=== PATIENT | male | born 1970 | race Caucasian/White ===

== ENCOUNTER → 2017-12-23 | Outpatient (CLI) | payer BC ==
[2017-12-23 10:07] LABS: BUN 15 mg/dl (7-24); CHLORIDE 103 mmol/L (98-107); CHOLESTEROL 176 mg/dL (<200); HDL CHOLESTEROL 82 mg/dl (40-60); LDL CHOLESTEROL 88 mg/dL (9-159); SODIUM 140 mmol/L (136-145); TRIGLYCERIDES 28 mg/dl (<150); VLDL CHOLESTEROL 6 mg/dL (6-40)
== END | disposition home or self-care (01) ==
LOC: LAB 09:07
PROVIDERS: Family Medicine
DX: R03.0 Elevated blood-pressure reading, without diagnosis of hypertension (principal)

== ENCOUNTER → 2018-11-14 | Outpatient (CLI) | payer BC ==
[~2018-11-14] MED LIST: APPLE CIDER VI500 MG PO; CALCIUM 600 +1 EAC2 PO; FISH OIL 1,0001 EAC2 PO; GLUCOSAMINE-CH1 EACH PO; GOOD SENSE ASPI81 M1 PO; LISINOPRIL10 M1 PO; MAGNESIUM PO; MEN'S MULTIVIT1 EAC1 PO; METOPROLOL SUCC25 M2 PO; MILK THISTLE150 MG PO; NEXIUM40 MG PO; POTASSIUM99 M5 PO; PROBIOTIC ACID1 EAC3 PO; SUPER B-50 COM1 EAC1 PO; VITAMIN C1000 M5 PO
--- NOTE | ~2018-11-14 | ST ---
[place], [place] EXERCISE STRESS TEST REPORT NAME: JEM VELA UNIT #: [id number] ROOM: DOCTOR: ARDEN BARKER [facility],[place] BIRTHDATE: [birth year] DOS: 11/14/2018 The patient underwent stress test and stays on Jelani protocol up to 10 minutes and heart rate is 148, blood pressure response is 106/82, 86% predicted heart rate. No ischemic changes in the EKG. Blood pressure response is good. Double product is good. No complication noted. Isotope was injected. Exercised more than a minute after the isotope injection and myocardial perfusion scan to follow. Exercise tolerance is fairly good. SHEBA HER MD CM:STRESS:EXERCISE STRESS TEST REPORT [id number] SHEBA HER MD [facility]
== END | disposition home or self-care (01) ==
LOC: CARD 01:13
DX: I20.9 Angina pectoris, unspecified (principal)

== ENCOUNTER → 2020-05-06 | Outpatient (CLI) | payer BC | END | disposition home or self-care (01) | LOC: RAD 09:56 | PROVIDERS: ATTEND Family Medicine | DX: M16.12 Unilateral primary osteoarthritis, left hip (principal) ==

== ENCOUNTER 2021-02-10 08:53 | Emergency (ER) | payer BC ==
[~2021-02-10] VITALS: Wt 123.4 kg
[2021-02-10] MEDS ORDERED: DOXYCYCLINE100 M3 PO (10:16)
== END 2021-02-10 10:31 | disposition home or self-care (01) ==
LOC: ED 08:53
DX: L03.115 Cellulitis of right lower limb (principal); F17.200 Nicotine dependence, unspecified, uncomplicated; Z79.899 Other long term (current) drug therapy; Z79.82 Long term (current) use of aspirin

== ENCOUNTER → 2021-11-14 | Outpatient (CLI) | payer BC ==
[~2021-11-14] MED LIST changes: +DOXYCYCLINE100 M3 PO
== END | disposition home or self-care (01) ==
LOC: RAD 01:42
PROVIDERS: ATTEND Internal Medicine
DX: M17.0 Bilateral primary osteoarthritis of knee (principal)

== ENCOUNTER → 2023-02-15 | Outpatient (CLI) | payer BC | END | disposition home or self-care (01) | LOC: RAD 14:21 | PROVIDERS: ATTEND Internal Medicine | DX: M25.462 Effusion, left knee (principal); M25.762 Osteophyte, left knee ==

== ENCOUNTER → 2024-11-12 | Outpatient (CLI) | payer BC | END | disposition home or self-care (01) | LOC: US 07:02 | PROVIDERS: ATTEND Internal Medicine | DX: K80.20 Calculus of gallbladder without cholecystitis without obstruction (principal); R74.8 Abnormal levels of other serum enzymes ==